=== PATIENT | female | born 1985 | race Hispanic/Latino ===

== ENCOUNTER 2023-01-07 22:51 | Emergency (ER) | payer SELFPAY ==
[2023-01-08] MEDS ORDERED: Lidocaine 4% Topical Sol 50 ML BOT ONE (01:06)
== END 2023-01-08 01:20 | disposition home or self-care (01) ==
LOC: CSHERS 22:51
DX: T23.141A Burn of first degree of multiple right fingers (nail), including thumb, initial encounter (principal); T31.0 Burns involving less than 10% of body surface; X11.8XXA Contact with other hot tap-water, initial encounter
CPT/HCPCS: 99283